=== PATIENT | male | born 1990 ===

== ENCOUNTER 2022-10-18 15:50 | Emergency (ER) | payer SELFPAY ==
[~2022-10-18] VITALS: Ht 175.3 cm; Wt 79.5 kg
[2022-10-18 15:55] VITALS: BP 122/87; PULSE 92; RESP 16; TEMP 98.3
[2022-10-18 16:19] LABS: COVID AG,FIA SOURCE NASAL SWAB
[2022-10-18 16:33] LABS: RAPID GROUP A STREP POSITIVE (NEGATIVE)
[2022-10-18 16:41] LABS: INFLUENZA TYPE A NEGATIVE FOR TYPE A (NEGATIVE); INFLUENZA TYPE B NEGATIVE FOR TYPE B (NEGATIVE)
[2022-10-18] MEDS ORDERED: IBUPROFEN 600 MG TABLET PO ONE (17:00)
[2022-10-18] MEDS ORDERED: PENICILLIN G BENZATHINE LA 1,200,000 UNITS/2 ML SYRINGE IM ONE (17:00)
[2022-10-18] MEDS ORDERED: DEXAMETHASONE SOD PHOS 4 MG/ML 5 ML VIAL IM ONE (17:00)
== END 2022-10-18 17:18 | disposition home or self-care (01) ==
LOC: EMS 15:50
DX: J02.0 Streptococcal pharyngitis (principal); Z20.822 Contact with and (suspected) exposure to COVID-19
CPT/HCPCS: 99284; 87426; 87430; 87804; 96372; J0561; J1100